=== PATIENT | male | born 1945 | race Caucasian/White ===

== ENCOUNTER → 2018-01-05 | Outpatient (CLI) | payer OTHER, MEDICARE | LOC: FIMAGING 14:38 | PROVIDERS: ATTEND Orthopaedic Surgery | DX: Z01.818 Encounter for other preprocedural examination (principal); M17.12 Unilateral primary osteoarthritis, left knee ==

== ENCOUNTER 2018-01-27 08:47 | Inpatient (IN) | payer OTHER, MEDICARE ==
--- NOTE | 2018-01-27 06:20 | PDHPUP ---
History & Physical Update H&P update statement: This history and physical update is based on an assessment of the patient which was completed after admission or registration (within 24 hours), but prior to the surgery/procedure. H&P update: H&P reviewed & patient examined, no change in patient's condition since H&P completed
[~2018-01-27 08:47] MED LIST: ROPIVACAINE 0.2% 80 MG, EPINEPHrine 0.2 MG, KETOROLAC TROMETHAMINE 30 MG in SYRINGE 0 ML IU ONE; TRANEXAMIC ACID 3,000 MG in NS (SYRINGE) 50 ML IRR ONE
[2018-01-27] MEDS ORDERED: ceFAZolin 2 GM/DEXTROSE 100 ML IV ONE (08:55)
[2018-01-27] MEDS ORDERED: DEXAMETHASONE 4 MG/ML VIAL IVP ONE (08:55)
[2018-01-27] MEDS ORDERED: FAMOTIDINE 20 MG TAB PO ONE (08:55)
[2018-01-27] MEDS ORDERED: ACETAMINOPHEN 325 MG TAB PO ONE (08:55)
[2018-01-27] MEDS ORDERED: LR 1,000 ML IV ONE (08:57)
[2018-01-27] MEDS ORDERED: LIDOCAINE 1% 2 ML INJ ID PRN (08:57)
[2018-01-27] MEDS ORDERED: TRANEXAMIC ACID 3,000 MG/50 ML BAG IRR ONE (09:12)
--- NOTE | 2018-01-27 10:56 | PDANEPAE ---
ANE History of Present Illness Knee OA ANE Past Medical History - Cardiovascular History Hx Hypertension: No Hx Arrhythmias: Yes Hx Chest Pain: No Hx Coronary Artery / Peripheral Vascular Disease: No Hx CHF / Valvular Disease: No Hx Palpitations: No Cardiovascular History Comment: ATRIAL FIB - ABLATION. HYPERLIPIDEMIA - Pulmonary History Hx COPD: No Hx Asthma/Reactive Airway Disease: No Hx Recent Upper Respiratory Infection: No Hx Oxygen in Use at Home: No Hx Sleep Apnea: No Sleep Apnea Screening Result - Last Documented: Negative - Neurologic History Hx Cerebrovascular Accident: No Hx Seizures: No Hx Dementia: No - Endocrine History Hx Diabetes: No - Renal History Hx Renal Disorders: No Renal History Comment: GREEN LIGHT LASER PROSTATE - Liver History Hx Hepatic Disorders: No - Neurological & Psychiatric Hx Hx Neurological and Psychiatric Disorders: No - Cancer History Hx Cancer: No - Congenital Disorder History Hx Congenital Disorders: No - Other Health History Other Health History: VITILIGO - Chronic Pain History Chronic Pain: Yes (TORITO KNEES) - Surgical History Prior Surgeries: TOSILLECTOMY. HEMMORRHOIDECTOMY. ABLATION CARDIAC. VITRECTOMY & CATARACT TORITO. PROSTATR GREEN LIGHT LASER ANE Review of Systems Review of Systems: - Exercise capacity METS (RN): 4 METS ANE Patient History - Allergies Allergies/Adverse Reactions: No Known Allergies Allergy (Verified 01/15/18 10:33) - Home Medications Home medications: home medication list seen and reviewed Home Medications: Ascorbic Acid [Vitamin C 500 mg (*)] 1,000 mg PO DAILY 01/15/18 [Last Taken ] Aspirin [Aspirin 81mg (*)] 81 mg PO HS 01/15/18 [Last Taken 01/20/18] Atorvastatin Calcium [Lipitor 10 mg (*)] 5 mg PO HS 01/15/18 [Last Taken 22:00] Cholecalciferol Vit D3 [Vitamin D3 (*)] 1,000 units PO DAILY 01/15/18 [Last Taken 01/13/18] Cyanocobalamin [Vitamin B12 (*)] 2,500 mcg PO DAILY 01/15/18 [Last Taken ] Herbals/Supplements -Info Only 1 ea PO DAILY 01/15/18 [Last Taken 01/13/18] Magnesium Oxide [Magnesium Oxide 400 mg (*)] 400 mg PO DAILY 01/15/18 [Last Taken 01/25/18] - NPO status NPO Status: no food or drink >8 hours NPO Since - Liquids (Date): 01/27/18 NPO Since - Liquids (Time): 07:00 NPO Since - Solids (Date): 01/26/18 NPO Since - Solids (Time): 19:00 - Anes Hx Anes Hx: no prior problems - Smoking Hx Smoking Status: Never smoked - Family Anes Hx Family Hx Anesthesia Complications: NEG ANE Labs/Vital Signs - Vital Signs Blood Pressure: 177/95 Heart Rate: 63 Respiratory Rate: 16 O2 Sat (%): 95 Height: 175.26 cm Weight: 72.575 kg ANE Physical Exam - Airway Neck exam: FROM Mallampati Score: Class 2 Mouth exam: normal dental/mouth exam - Pulmonary Pulmonary: no respiratory distress - Cardiovascular Cardiovascular: regular rate and rhythym - ASA Status ASA Status: II ANE Anesthesia Plan Anesthesia Plan: spinal Regional Anesthesia: adductor canal FNB
[2018-01-27] MEDS ORDERED: MIDAZOLAM 2 MG/2 ML VIAL ONE (11:04)
[2018-01-27] MEDS ORDERED: MIDAZOLAM 2 MG/2 ML VIAL IVP ONE (11:04)
[2018-01-27] MEDS ORDERED: BUPIVACAINE/DEXTROSE 7.5MG/ML 2 ML SPINAL AMP SP ONE (11:13)
[2018-01-27] MEDS ORDERED: PROPOFOL/EMULSION 500 MG/50 ML BOTTLE IV ONE ×2 (11:14→12:05)
[2018-01-27] MEDS ORDERED: LIDOCAINE 2% 5 ML SDV ONE (11:15)
[2018-01-27] MEDS ORDERED: ONDANSETRON 4 MG/2 ML VIAL IVP PRN ×2 (11:58→12:42)
[2018-01-27] MEDS ORDERED: fentaNYL 100 MCG/2 ML INJ IVP PRN (11:58)
[2018-01-27] MEDS ORDERED: NALOXONE HCL 0.4 MG/ML INJ IVP PRN (11:58)
[2018-01-27] MEDS ORDERED: ROPIVACAINE HCL 150 MG/30 ML INJ ONE (12:01)
[2018-01-27] MEDS ORDERED: PROMETHAZINE HCL 25 MG/ML INJ IVP PRN (12:42)
[2018-01-27] MEDS ORDERED: POLYETHYLENE GLYCOL 3350 17 GM PKT PO PRN (12:42)
[2018-01-27] MEDS ORDERED: oxyCODONE IR 5 MG TAB PO PRN (12:42)
[2018-01-27] MEDS ORDERED: MAGNESIUM HYDROXIDE 30 ML UDCUP PO PRN (12:42)
[2018-01-27] MEDS ORDERED: CYCLOBENZAPRINE 10 MG TAB PO PRN (12:42)
[2018-01-27] MEDS ORDERED: PROMETHAZINE HCL 25 MG SUPPR PR PRN (12:42)
[2018-01-27] MEDS ORDERED: METOCLOPRAMIDE 10 MG/2 ML VIAL IVP PRN (12:42)
[2018-01-27] MEDS ORDERED: diphenhydrAMINE 25 MG CAP PO PRN (12:42)
[2018-01-27] MEDS ORDERED: ONDANSETRON DISINTEGRATING 4 MG TAB PO PRN (12:42)
[2018-01-27] MEDS ORDERED: BISACODYL 10 MG SUPP PR PRN (12:42)
[2018-01-27] MEDS ORDERED: LACTULOSE 20 GM/30 ML UDCUP PO PRN (12:42)
[2018-01-27] MEDS ORDERED: DIPHENOXYLATE/ATROPINE LOMOTIL 1 TAB PO PRN (12:42)
[2018-01-27] MEDS ORDERED: TEMAZEPAM 15 MG CAP PO PRN (12:42)
--- NOTE | 2018-01-27 12:42 | POSTOPPROG ---
Post Op Note Date of Operation: 01/27/18 Surgeon: Bibi Livingston Pc Installation Engineer: kathrin livingston PA-C Anesthesiologist: Dr. Bear Anesthesia: Spinal, Other (Specify) (adductor canal block) Pre-op Diagnosis: left knee OA Post-op Diagnosis: same Indication: left knee pain Procedure: L TKA robot assisted Findings: severe knee OA Inf/Abcess present in the surg proc area at time of surgery?: No EBL: 50-100
--- NOTE | 2018-01-27 12:51 | POSTANESTH ---
Post Anesthetic Evaluation Cardiovascular Status: Similar to Pre-Op Cond Respiratory Status: Similar to Pre-op Cond. Level of Consciousness/Mental Status: Alert and Oriented, Mildly Sleepy, Arousable Pain Control: Adequate, Prn Tx Ordered Nausea/Vomiting Control: Adequate, Prn Tx Ordered Complications Possibly Related to Anesthesia: None Noted (AC block in PACU. No complications.)
[2018-01-27] MEDS ORDERED: LR 1,000 ML IV SCH (13:00)
--- NOTE | 2018-01-27 13:22 | PDMN ---
Medical Necessity Medical necessity: Pt meets INPT criteria per MD/PA (est. LOS >2 MN s/p TKA to monitor afib and pain control, advanced age).
[2018-01-27] MEDS ORDERED: oxyCODONE IR 5 MG TAB ONE (13:25)
[2018-01-27] MEDS: ACETAMINOPHEN 325 MG TAB PO SCH ×2 (18:10→23:19)
[2018-01-27] MEDS: ceFAZolin 2 GM/DEXTROSE 100 ML IV SCH (18:10)
[2018-01-27] MEDS ORDERED: ATORVASTATIN CALCIUM 10 MG TAB PO SCH (21:00)
[2018-01-27] MEDS: FAMOTIDINE 20 MG TAB PO SCH (21:02)
[2018-01-27] MEDS: SENNOSIDES/DOCUSATE SODIUM TAB PO SCH (21:02)
[2018-01-27] MEDS: ASPIRIN 81 MG CHEWABLE TAB PO SCH (21:03)
[2018-01-28] MEDS: ceFAZolin 2 GM/DEXTROSE 100 ML IV SCH (03:49)
[2018-01-28] MEDS: ACETAMINOPHEN 325 MG TAB PO SCH (05:05)
[2018-01-28 08:25] VITALS: BP 136/80
--- NOTE | 2018-01-28 08:31 | GOP ---
DATE OF OPERATION: 01/27/2018 SURGEON: Beka Holly MD CIRCULAR KNIFE CUTTER MACHINE: Emma Holly, LUC. ANESTHESIA: Spinal. PREOPERATIVE DIAGNOSIS: Left knee osteoarthritis. POSTOPERATIVE DIAGNOSIS: Left knee osteoarthritis. PROCEDURE PERFORMED: Left total knee arthroplasty with computer navigation, robotic assist. FINDINGS: ESTIMATED BLOOD LOSS: 30 cc. INDICATIONS: The patient is a 72-year-old male with severe and progressive pain and deformity of the left knee unresponsive to conservative care. The risks and benefits of surgical intervention were e xplained in detail. DESCRIPTION OF PROCEDURE: The patient was brought to the operative room and placed on the table in t he supine position. Spinal anesthesia was induced without difficulty. A pneumatic tourniquet was appl ied about the left proximal thigh, and the leg was prepped and draped in a sterile fashion. The leg h older was applied. After exsanguination by elevation the tourniquet was inflated to 250 mmHg. Incision was made anterior medial from the tibial tuberosity to a point 2 cm proximal to the superior pole of the patella. Medial parapatellar arthrotomy was carried out from the superior pole of the pa tella and posteriorly in line with the fibers of the Type II VMO. The medial collateral ligament was elevated and the infrapatellar fat pad was resected. The patella was everted and the articular surface was excised. A 35 mm patellar button was placed. Attention was turned first to the distal aspect of the femur. After exposure of the femur, 2 half pi ns were placed for fixation of the femoral array. In a similar fashion, 2 pins were placed anteromed ial on the tibia for fixation of the tibial array. External land marking and registration of the hip center were performed without difficulty. Internal femoral and tibial registration was carried out without difficulty and the femoral and tibial checkpoints were placed and verified for accuracy. Attention was turned to the femur. The foot print for the size 4 femoral component was cut with the saw using the [employer] robotic system and verified for accuracy against the CT based plan. In a similar f ashion, the saw was used to cut the footprint for the size 5 tibial component using the [employer] system an d verified for accuracy against the CT based plan. The tibial articular surface was excised without d ifficulty, followed by the intercondylar box cut. The knee was extended and the remnants of the medial and lateral meniscus were excised. The posterior capsule was injected with ropivacaine, epinephrine and Toradol. A size 5 tibial tray was positioned . Trial reduction was then carried out. There was excellent range of motion, alignment, and stability using the 5 x 9 mm polyethylene. All trials were then removed. The joint was thoroughly irrigated and carefully dried. The press-fit c omponents were implanted. The permanent 5 x 9 mm polyethylene was placed without difficulty. The tourniquet was deflated and all bleeders were coagulated. The wound was thoroughly irrigated and closed using interrupted sutures of 2-0 Vicryl for the joint capsule. The subcu was closed with 3-0 V icryl and the skin with 4-0 Monocryl. Dermabond and Steri-Strips were applied followed by a compress emma dressing. The patient was then moved from the operating room to the recovery room in good conditi on, having tolerated the procedure well. PATHOLOGY: Severe tricompartmental osteoarthritis. /[id number]/MODL
[2018-01-28] MEDS: FAMOTIDINE 20 MG TAB PO SCH (08:38)
[2018-01-28] MEDS: SENNOSIDES/DOCUSATE SODIUM TAB PO SCH (08:38)
[2018-01-28] MEDS: ASPIRIN 81 MG CHEWABLE TAB PO SCH (08:38)
[2018-01-28] MEDS ORDERED: MAGNESIUM OXIDE 400 MG TAB PO SCH (09:00)
--- NOTE | 2018-01-28 09:43 | ASDISCHSUM ---
Discharge Information Plan Status:Home with No Needs Medically Cleared to Leave:01/27/2018 Discharge Date:01/27/2018 CM D/C Disposition:Home, Routine, Self-Care ADT D/C Disposition:Home, Routine, Self-Care Projected Discharge Date:01/27/2018 Transportation at D/C: Discharge Delay Reason: Follow-Up Date:01/27/2018 Discharge Slot: Final Diagnosis: Placement Information Patient Contact Information Contact Name:ELHAM Relationship:Merry Address: Work Phone: City: [facility] Phone: State/[place] Code: Email: Financial Information Financial Class:Medicare Primary Plan Desc:MEDICARE OUTPATIENT Primary Plan Number:[id number] Secondary Plan Desc:[facility]OGELIO SUPPLEMENT Secondary Plan Number:[id number] Assessment Information LACE LACE Length of stay for Answers: 1 day current admission Acuity / Level of Answers: Yes Care: Did the patient have an inpatient admission? Comorbidities - select Answers: Opioid dependence all that apply / Chronic pain Other Notes: AFib # of Emergency department Answers: 0 visits in the last 6 months Score: 9 Date Signed: 01/28/2018 09:41 AM Electronically Signed By:Becca Alva RN Case Management Discharge Plan Note Case Management Discharge Discharge Order Complete? Answers: Yes Discharge Comments Notes: 01/28/2018 Case Management Note No discharge case management needs identified. Pt to discharge home with follow up as directed. Date Signed: 01/28/2018 09:42 AM Electronically Signed By:Becca Alva RN Intervention Information
--- NOTE | 2018-01-28 11:13 | SOAPPROG ---
SOAP Progress Note Assessment/Plan: Assessment: Patient is doing well POD 1 s/p L TKa Pain management: pain is well controlled on oral pain meds. VTE ppx: recommend aspirin 81 mg BID for 4 weeks, cont CHET and SCDs Anemia: level is expected initially postop. Asymptomatic. Continue to monitor D/c planning: Patient has done better than anticipated. Pain has been minimal and patient has tolerated narcotic pain meds well. Patient would prefer to go home today. Ok for discharge to home if patient is released from PT Plan: 01/28/18 11:12 Subjective: patient is doing well, denies SOB, chest pain and N/V Objective: Vital Signs Temp Pulse Resp BP Pulse Ox 36.6 C 72 14 136/80 H 96 01/28/18 08:00 01/28/18 08:00 01/28/18 08:00 01/28/18 08:00 01/28/18 08:00 Laboratory Results 01/28/18 04:40 01/27/18 01/28/18 01/29/18 05:59 05:59 05:59 Intake Total 1150 Output Total 2000 500 Balance -850 -500 LLE; incision dressing is clean and dry, NVI, +pf/df ICD10 Worksheet Patient Problems: Problems Problem Status Onset Primary localized osteoarthritis of left knee Acute
== END 2018-01-28 12:01 | disposition home or self-care (01) | DRG 470 ==
LOC: F3N 08:47 → OBSVTOIN 08:47 → F3N 13:58
PROVIDERS: ADMIT Orthopaedic Surgery; ATTEND Orthopaedic Surgery
DX: M17.12 Unilateral primary osteoarthritis, left knee (principal); I10 Essential (primary) hypertension; I48.91 Unspecified atrial fibrillation; E78.5 Hyperlipidemia, unspecified
CPT/HCPCS: 97110-GP; 97116-GP; 97161-GP; G8978-GP-CJ; G8979-GP-CI; G8980-GP-CI; J0171; J0690; J1100; J1885; J2250; J2704; J2795

== ENCOUNTER → 2018-04-13 | Outpatient (CLI) | payer OTHER, MEDICARE | LOC: FIMAGING 13:43 | PROVIDERS: ATTEND Orthopaedic Surgery | DX: M17.11 Unilateral primary osteoarthritis, right knee (principal) ==

== ENCOUNTER 2018-05-05 06:31 | Inpatient (IN) | payer OTHER, MEDICARE ==
[2018-05-05] MEDS ORDERED: FAMOTIDINE 20 MG TAB PO ONE (06:54)
[2018-05-05] MEDS ORDERED: ceFAZolin 2 GM/DEXTROSE 100 ML IV ONE (06:54)
[2018-05-05] MEDS ORDERED: ACETAMINOPHEN 325 MG TAB PO ONE (06:54)
[2018-05-05] MEDS ORDERED: DEXAMETHASONE 4 MG/ML VIAL IVP ONE (06:54)
[2018-05-05] MEDS ORDERED: LR 1,000 ML IV ONE (06:56)
[2018-05-05] MEDS ORDERED: TRANEXAMIC ACID 3,000 MG/50 ML BAG IRR ONE (07:24)
[2018-05-05] MEDS ORDERED: VANCOMYCIN 1 GM VIAL ONE (07:24)
--- NOTE | 2018-05-05 08:29 | PDANEPAE ---
ANE History of Present Illness OA knee ANE Past Medical History - Cardiovascular History Hx Hypertension: No Hx Arrhythmias: Yes Hx Chest Pain: No Hx Coronary Artery / Peripheral Vascular Disease: No Hx CHF / Valvular Disease: No Hx Palpitations: No Cardiovascular History Comment: afib-now sinus post ablation. hyperlipidemia. followed by [facility] - Pulmonary History Hx COPD: No Hx Asthma/Reactive Airway Disease: No Hx Recent Upper Respiratory Infection: No Hx Oxygen in Use at Home: No Hx Sleep Apnea: Yes Sleep Apnea Screening Result - Last Documented: Negative - Neurologic History Hx Cerebrovascular Accident: No Hx Seizures: No Hx Dementia: No - Endocrine History Hx Diabetes: No Hypothyroid: No Hyperthyroid: No Obesity: no - Renal History Hx Renal Disorders: No Renal History Comment: GREEN LIGHT LASER PROSTATE - Liver History Hx Hepatic Disorders: No - Neurological & Psychiatric Hx Hx Neurological and Psychiatric Disorders: No - Cancer History Hx Cancer: No - Congenital Disorder History Hx Congenital Disorders: No - GI History GERD: no Hx Gastrointestinal Disorders: No - Other Health History Other Health History: VITILIGO - Chronic Pain History Chronic Pain: Yes (right knee) - Surgical History Prior Surgeries: 01/27/18 left TKA with [place]. TOSILLECTOMY. HEMMORRHOIDECTOMY. ABLATION CARDIAC. VITRECTOMY & CATARACT TORITO. PROSTATR GREEN LIGHT LASER ANE Review of Systems Review of systems is: negative Review of Systems: - Exercise capacity METS (RN): 4 METS ANE Patient History - Allergies Allergies/Adverse Reactions: No Known Allergies Allergy (Verified 04/21/18 12:33) - Home Medications Home medications: home medication list seen and reviewed Home Medications: Ascorbic Acid [Vitamin C 500 mg (*)] 500 mg PO DAILY 01/15/18 [Last Taken ] Atorvastatin Calcium [Lipitor 10 mg (*)] 5 mg PO HS 01/15/18 [Last Taken ] Cholecalciferol Vit D3 [Vitamin D3 (*)] 1,000 units PO DAILY 01/15/18 [Last Taken 04/21/18] Cyanocobalamin [Vitamin B12 (*)] 2,500 mcg PO DAILY 01/15/18 [Last Taken 2 Weeks Ago ~04/21/18] Herbals/Supplements -Info Only 1 ea PO DAILY 01/15/18 [Last Taken 04/21/18] Aspirin [Aspirin 81mg (*)] 81 mg PO HS 04/14/18 [Last Taken 1 Week Ago ~04/28/18 ] - NPO status NPO Status: no food or drink >8 hours NPO Since - Liquids (Date): 05/04/18 NPO Since - Liquids (Time): 21:00 NPO Since - Solids (Date): 05/04/18 NPO Since - Solids (Time): 19:30 - Anes Hx Anes Hx: no prior problems - Smoking Hx Smoking Status: Never smoked Marijuana use: No - Alcohol Use Alcohol Use: Rarely - Family Anes Hx Family Anes Hx: none Family Hx Anesthesia Complications: none ANE Labs/Vital Signs - Vital Signs Blood Pressure: 170/91 Heart Rate: 59 Respiratory Rate: 16 O2 Sat (%): 96 Height: 175.26 cm Weight: 68.039 kg ANE Physical Exam - Airway Neck exam: FROM Mallampati Score: Class 2 Mouth exam: normal dental/mouth exam - Pulmonary Pulmonary: no respiratory distress, clear to auscultation - Cardiovascular Cardiovascular: regular rate and rhythym, no murmur, rub, or gallop - ASA Status ASA Status: II ANE Anesthesia Plan Anesthesia Plan: spinal Regional Anesthesia: single shot NB
[2018-05-05] MEDS ORDERED: MIDAZOLAM 2 MG/2 ML VIAL IVP ONE (08:46)
[2018-05-05] MEDS ORDERED: PROPOFOL/EMULSION 500 MG/50 ML BOTTLE IV ONE (09:19)
[2018-05-05] MEDS ORDERED: POLYETHYLENE GLYCOL 3350 17 GM PKT PO PRN (09:32)
[2018-05-05] MEDS ORDERED: PROMETHAZINE HCL 25 MG/ML INJ IVP PRN (09:32)
[2018-05-05] MEDS ORDERED: DIPHENOXYLATE/ATROPINE LOMOTIL 1 TAB PO PRN (09:32)
[2018-05-05] MEDS ORDERED: ONDANSETRON DISINTEGRATING 4 MG TAB PO PRN (09:32)
[2018-05-05] MEDS ORDERED: diphenhydrAMINE 25 MG CAP PO PRN (09:32)
[2018-05-05] MEDS ORDERED: MAGNESIUM HYDROXIDE 30 ML UDCUP PO PRN (09:32)
[2018-05-05] MEDS ORDERED: LACTULOSE 20 GM/30 ML UDCUP PO PRN (09:32)
[2018-05-05] MEDS ORDERED: METOCLOPRAMIDE 10 MG/2 ML VIAL IVP PRN (09:32)
[2018-05-05] MEDS ORDERED: CYCLOBENZAPRINE 10 MG TAB PO PRN (09:32)
[2018-05-05] MEDS ORDERED: BISACODYL 10 MG SUPP PR PRN (09:32)
[2018-05-05] MEDS ORDERED: oxyCODONE IR 5 MG TAB PO PRN (09:32)
[2018-05-05] MEDS ORDERED: TEMAZEPAM 15 MG CAP PO PRN (09:32)
[2018-05-05] MEDS ORDERED: ONDANSETRON 4 MG/2 ML VIAL IVP PRN (09:32)
[2018-05-05] MEDS ORDERED: PROMETHAZINE HCL 25 MG SUPPR PR PRN (09:32)
[2018-05-05] MEDS ORDERED: ROPIVACAINE HCL 150 MG/30 ML INJ ONE (09:39)
[2018-05-05] MEDS ORDERED: LIDOCAINE 2% 5 ML SDV ONE (09:39)
[2018-05-05] MEDS ORDERED: BUPIVACAINE/DEXTROSE 7.5MG/ML 2 ML SPINAL AMP SP ONE (09:39)
--- NOTE | 2018-05-05 09:43 | POSTANESTH ---
Post Anesthetic Evaluation Cardiovascular Status: Normal, Stable Respiratory Status: Normal, Stable Level of Consciousness/Mental Status: Can Participate in Eval Pain Control: Adequate, Prn Tx Ordered Nausea/Vomiting Control: Adequate, Prn Tx Ordered Complications Possibly Related to Anesthesia: None Noted
[2018-05-05] MEDS ORDERED: LR 1,000 ML IV SCH (10:00)
[2018-05-05] MEDS ORDERED: LR 500 ML IV PRN (10:15)
[2018-05-05] MEDS ORDERED: NALOXONE HCL 0.4 MG/ML INJ IVP PRN (10:15)
[2018-05-05] MEDS ORDERED: fentaNYL 100 MCG/2 ML INJ IVP PRN (10:15)
[2018-05-05] MEDS ORDERED: HYDROmorphONE/DILAUDID 2 MG/ML INJ IVP PRN (10:15)
--- NOTE | 2018-05-05 10:32 | POSTOPPROG ---
Post Op Note Date of Operation: 05/05/18 Surgeon: Bibi Holly Horse Racer: Emma Holly and Vashti Wharton PA-C Anesthesiologist: Dr. Colin Morales Anesthesia: Spinal, Other (Specify) (adductor canal block) Pre-op Diagnosis: right knee OA Post-op Diagnosis: same Indication: right knee pain Procedure: right TKA, robot assisted Findings: severe OA of right knee Inf/Abcess present in the surg proc area at time of surgery?: No EBL: 50-100
[2018-05-05] MEDS: ACETAMINOPHEN 325 MG TAB PO SCH ×2 (16:21→21:15)
[2018-05-05] MEDS: ceFAZolin 2 GM/DEXTROSE 100 ML IV SCH (17:42)
--- NOTE | 2018-05-05 18:07 | PDMN ---
Medical Necessity Medical necessity: Pt meets IP criteria per PA; est los >2 mn s/p R TKA (cpt 94195); recommending IP due to advanced age, hx afib & pain management; per order 05/05/18
[2018-05-05] MEDS ORDERED: ATORVASTATIN CALCIUM 10 MG TAB PO SCH (21:00)
[2018-05-05] MEDS: SENNOSIDES/DOCUSATE SODIUM TAB PO SCH (21:13)
[2018-05-05] MEDS: FAMOTIDINE 20 MG TAB PO SCH (21:15)
[2018-05-05] MEDS: ASPIRIN 81 MG CHEWABLE TAB PO SCH (21:15)
[2018-05-06] MEDS: ceFAZolin 2 GM/DEXTROSE 100 ML IV SCH (00:17)
[2018-05-06] MEDS: ACETAMINOPHEN 325 MG TAB PO SCH ×2 (05:10→08:46)
[2018-05-06 07:18] VITALS: BP 149/83
[2018-05-06] MEDS: ASPIRIN 81 MG CHEWABLE TAB PO SCH (08:40)
[2018-05-06] MEDS: FAMOTIDINE 20 MG TAB PO SCH (08:41)
[2018-05-06] MEDS: SENNOSIDES/DOCUSATE SODIUM TAB PO SCH (08:41)
--- NOTE | 2018-05-06 09:18 | SOAPPROG ---
SOAP Progress Note Assessment/Plan: Assessment: Patient is doing well POD 1 s/p R TKA Pain management: pain is well controlled on oral pain meds. VTE ppx: recommend aspirin 81 mg BID for 4 weeks, cont CHET and SCDs Anemia: level is expected initially postop. Asymptomatic. Continue to monitor D/c planning: Patient has done better than anticipated and would like to be discharged to home today. Patient must be released from PT before discharge to home. postop urinary retention: straight cath'd yesterday, resolved today. spinal anesthesia: patient reports his spinal lasted for 7 hours yesterday and that he had urinary retention that required straight cath. Patient reports when he had L TKA last fall that the spinal lasted for 2 hours and he had urinary incontinence. Plan: 05/06/18 09:16 Subjective: William is doing well today, denies SOB, chest pain and N/V Objective: Vital Signs Temp Pulse Resp BP Pulse Ox 36.5 C 63 15 149/83 H 96 05/06/18 07:17 05/06/18 07:17 05/06/18 07:17 05/06/18 07:17 05/06/18 07:17 Laboratory Results 05/06/18 05:23 05/05/18 05/06/18 05/07/18 05:59 05:59 05:59 Intake Total 2160 500 Output Total 1625 350 Balance 535 150 RLE: incision dressing is clean and dry, NVI, +pf/df ICD10 Worksheet Patient Problems: Problems Problem Status Onset Primary localized osteoarthritis of right knee Acute Primary localized osteoarthritis of left knee Acute
--- NOTE | 2018-05-06 10:03 | ASMTLACE ---
LACE Length of stay for Answers: 2 days current admission Acuity / Level of Answers: Yes Care: Did the patient have an inpatient admission? Comorbidities - select Answers: Opioid dependence all that apply / Chronic pain Other Notes: AFib; HLD # of Emergency department Answers: 0 visits in the last 6 months Score: 10 Date Signed: 05/06/2018 10:02 AM Electronically Signed By:GISELLA Lopez
--- NOTE | 2018-05-06 10:51 | GDS ---
[f rep st] DISCHARGE SUMMARY ADMISSION DIAGNOSIS: Right knee osteoarthritis. DISCHARGE DIAGNOSIS: Right knee osteoarthritis. PROCEDURE: Right total knee arthroplasty, robotic assisted. VTE PROPHYLAXIS: Recommend aspirin 81 mg twice daily for 4 weeks. BRIEF DESCRIPTION OF HOSPITAL STAY: Patient was admitted for an elective joint arthroplasty. The pa ousmane tolerated the procedure well and has passed physical therapy. The patient was given appropriat e antibiotic prophylaxis and venous thromboembolism prophylaxis. The patient's pain was well control led on oral pain medication, patient was holding down food, and had urinated. Decision was made to d ischarge the patient. The patient was given post-operative prescriptions pre-operatively. PLAN: Scheduled with Dr. Holly's office May 27, at 11:15 a.m. /[id number]/MODL
--- NOTE | 2018-05-06 16:43 | GOP ---
[f rep st] OPERATIVE REPORT DATE OF OPERATION: 05/05/2018 SURGEON: Beka Holly MD PEDIATRIC ALLERGIST: Emma Holly PA-C, and Adriana Wharton PA-C. ANESTHESIA: Spinal. PREOPERATIVE DIAGNOSIS: Right knee osteoarthritis. POSTOPERATIVE DIAGNOSIS: Right knee osteoarthritis. PROCEDURE PERFORMED: Right total knee arthroplasty with computer navigation, robotic assist. FINDINGS: ESTIMATED BLOOD LOSS: 30 cc. INDICATIONS: The patient is a 72-year-old male with severe and progressive pain and deformity of the right knee unresponsive to conservative care. The risks and benefits of surgical intervention were explained in detail. DESCRIPTION OF PROCEDURE: The patient was brought to the operative room and placed on the table in the supine position. Spinal anesthesia was induced without difficulty. A pneumatic tourniquet was applied about the right proximal thigh, and the leg was prepped and draped in a sterile fashion. The leg galarza was applied. After exsanguination by elevation the tourniquet was inflated to 250 mmHg. Incision was made anterior medial from the tibial tuberosity to a point 2 cm proximal to the superior pole of the patella. Medial parapatellar arthrotomy was carried out from the superior pole of the patella and posteriorly in line with the fibers of the Type II VMO. The medial collateral ligament was elevated and the infrapatellar fat pad was resected. The patella was everted and the articular surface was excised. A 35 mm patellar button was placed. Attention was turned first to the distal aspect of the femur. After exposure of the femur, 2 half pins were placed for fixation of the femoral array. In a similar fashion, 2 pins were placed anteromedial on the tibia for fixation of the tibial array. External land marking and registration of the hip center was performed without difficulty. Internal femoral and tibial registration was carried out without difficulty and the femoral and tibial checkpoints were placed and verified for accuracy. Attention was turned to the femur. The foot print for the size 4 femoral component was cut with the saw using the [employer] robotic system and verified for accuracy against the CT based plan. In a similar fashion, the saw was used to cut the footprint for the size 5 tibial component using the [employer] system and verified for accuracy against the CT based plan. The tibial articular surface was excised without difficulty, followed by the intercondylar box cut. The knee was extended and the remnants of the medial and lateral meniscus were excised. The posterior capsule was injected with ropivacaine, epinephrine and Toradol. A size 5 tibial tray was positioned. Trial reduction was then carried out. There was excellent range of motion, alignment, and stability using the 5 x 9 mm polyethylene. All trials were then removed. The joint was thoroughly irrigated and carefully dried. The press-fit components were implanted. The permanent 5 x 9 mm polyethylene was placed without difficulty. The tourniquet was deflated and all bleeders were coagulated. The wound was thoroughly irrigated and closed using interrupted sutures of 2-0 Vicryl for the joint capsule. The subcu was closed with 3-0 Vicryl and the skin with 4-0 Monocryl. Dermabond and Steri-Strips were applied followed by a compressive dressing. The patient was then moved from the operating room to the recovery room in good condition, having tolerated the procedure well. PATHOLOGY: Severe tricompartmental osteoarthritis. /[id number]/MODL MTDD
== END 2018-05-06 11:21 | disposition home or self-care (01) | DRG 470 ==
LOC: F3N 06:31
PROVIDERS: ADMIT Orthopaedic Surgery; ATTEND Orthopaedic Surgery
DX: M17.11 Unilateral primary osteoarthritis, right knee (principal); I48.91 Unspecified atrial fibrillation; E78.5 Hyperlipidemia, unspecified; Z96.652 Presence of left artificial knee joint
CPT/HCPCS: 97110-GP; 97116-GP; 97161-GP; J0171; J0690; J1100; J1885; J2250; J2704; J2795; J3370